=== PATIENT | male | born 1955 | race Caucasian/White ===

== ENCOUNTER 2018-05-10 17:32 | Emergency (ER) | payer OTHER ==
[2018-05-10] MEDS ORDERED: SIMV-49 PO (17:40)
[2018-05-10] MEDS ORDERED: ASPI-1471 PO (17:40)
[2018-05-10] MEDS ORDERED: LISI20TA29 PO (17:40)
--- NOTE | 2018-05-10 17:44 | ER Report ---
History and Physical Time Seen By MD: 17:44 Hx. of Stated Complaint: INSECT BITE TO LEFT HAND. REDNESS AND SWELLING. HPI/ROS CHIEF COMPLAINT: Possible bite to left hand HISTORY OF PRESENT ILLNESS: This is a 63-year-old male who presents to the emergency department, with his for a possible insect bite to his left hand. The patient states that he was in [facility] visiting some friends and may have come into contact unknowingly with some insect that bit his left hand on the ulnar side, throughout the day today he's developed increased redness, swelling and an area that could be an abscess. The hand is swollen from the fingers to the wrist. No significant pain to the hand. No fevers or chills, no aches or pains at this time. No nausea or vomiting. REVIEW OF SYSTEMS: Respiratory: No cough, no dyspnea. Cardiovascular: No chest pain, no palpitations. Gastrointestinal: No vomiting, no abdominal pain. Musculoskeletal: No back pain. Integumentary: As above. Allergies: Coded Allergies: No Known Drug Allergies (Unverified , 05/10/18) Home Meds Active Scripts Ondansetron (ZOFRAN ODT) 4 Mg Tab.rapdis, 4 MG PO Q6H PRN for NAUSEA/VOMITING, #20 TAB.KELI Prov:[facility] 05/10/18 Hydrocodone Bit/Acetaminophen (NORCO 5-325 TABLET) 1 Each Tablet, 1 EACH PO Q4- 6H PRN for PAIN, #12 TAB Prov:[facility]ADGET[facility] 05/10/18 Sulfamethoxazole/Trimet 800-160 Mg Tab (BACTRIM DS TABLET) 1 Each Tablet, 1 TAB PO Q12H, #20 TAB 0 Refills Prov:[facility] PADGETT [facility]- 05/10/18 Reported Medications Simvastatin (SIMVASTATIN) 20 Mg Tablet, 20 MG PO HS, TAB 05/10/18 Aspirin (ASPIR 81) 81 Mg Tablet.dr, 81 MG PO QDAY, TAB 05/10/18 Lisinopril (LISINOPRIL) 20 Mg Tablet, 20 MG PO QDAY, TAB 05/10/18 Past Medical/Surgical History The patient has a past medical and surgical history of hypertension. Reviewed Nurses Notes: Yes Constitutional Vital Sign - Last 24 Hours 05/10/18 05/10/18 05/10/18 05/10/18 17:37 18:00 18:30 19:00 Temp 99.1 Pulse 109 Resp 18 B/P (MAP) 138/88 148/90 (109) 125/83 (97) 142/91 (108) Pulse Ox 93 O2 Delivery Room Air 05/10/18 05/10/18 05/10/18 05/10/18 19:30 19:35 19:50 20:00 Pulse 82 81 B/P (MAP) 124/76 (92) 127/83 (98) Pulse Ox 92 93 05/10/18 05/10/18 05/10/18 05/10/18 20:05 20:20 20:30 20:35 Pulse 87 86 89 B/P (MAP) 110/69 (83) Pulse Ox 85 93 94 05/10/18 20:50 Pulse 103 Pulse Ox 90 Physical Exam General Appearance: The patient is alert, has no immediate need for airway protection and no current signs of toxicity. Eyes: Pupils equal and round no injection. Respiratory: Chest is non tender, lungs are clear to auscultation. Cardiac: regular rate and rhythm. Gastrointestinal: Abdomen is soft and non tender, no masses, bowel sounds normal. Musculoskeletal: Neck: Neck is supple and non tender. Extremities have full range of motion and are non tender. Skin: Cellulitic appearing wound to the dorsum of the left hand with an area on the ulnar side that may have sustained a bite of some sort from an insect. There an area in the middle that is scabbed over, with a convex firm approximately 2-3 cm dark purple area surrounded by some erythema. No sloughing of any tissue at this time. [ ] DIFFERENTIAL DIAGNOSIS: After history and physical exam differential diagnosis was considered for necrotizing fasciitis, brown recluse bite, cellulitis and abscess. Medical Decision Making Data Points Result Diagram: 05/10/188 05/10/188 Laboratory Hematology Test 05/10/18 18:28 Red Blood Count 5.06 M/uL (4.00-5.60) Mean Corpuscular Volume 84.8 fL (80.0-96.0) Mean Corpuscular Hemoglobin 29.7 pg (26.0-33.0) Mean Corpuscular Hemoglobin Concent 35.0 g/dL (32.0-36.0) Red Cell Distribution Width 13.5 % (11.5-14.5) Mean Platelet Volume 7.9 fL (7.2-11.1) Neutrophils (%) (Auto) 86.7 % (39.4-72.5) Lymphocytes (%) (Auto) 5.1 % (17.6-49.6) Monocytes (%) (Auto) 6.6 % (4.1-12.4) Eosinophils (%) (Auto) 0.8 % (0.4-6.7) Basophils (%) (Auto) 0.8 % (0.3-1.4) Nucleated RBC Relative Count (auto) 0.0 /100WBC Neutrophils # (Auto) 10.4 K/uL (2.0-7.4) Lymphocytes # (Auto) 0.6 K/uL (1.3-3.6) Monocytes # (Auto) 0.8 K/uL (0.3-1.0) Eosinophils # (Auto) 0.1 K/uL (0.0-0.5) Basophils # (Auto) 0.1 K/uL (0.0-0.1) Nucleated RBC Absolute Count (auto) 0.00 K/uL Peripheral Blood Smear Yes Y/N Sodium Level 137 mmol/L (137-145) Potassium Level 3.7 mmol/L (3.5-5.0) Chloride Level 100 mmol/L (98-107) Carbon Dioxide Level 27 mmol/L (22-30) Blood Urea Nitrogen 21 mg/dl (9-21) Creatinine 0.90 mg/dl (0.66-1.25) Glomerular Filtration Rate Calc > 60.0 Random Glucose 124 mg/dl (75-110) Calcium Level 9.3 mg/dl (8.4-10.2) Total Bilirubin 0.4 mg/dl (0.2-1.3) Aspartate Amino Transf (AST/SGOT) 19 U/L (0-35) Alanine Aminotransferase (ALT/SGPT) 30 U/L (0-56) Alkaline Phosphatase 85 U/L (0-126) Total Protein 7.3 g/dl (6.3-8.2) Albumin 4.3 g/dl (3.5-5.0) Chemistry Test 05/10/18 18:28 White Blood Count 12.0 k/uL (4.5-11.0) Red Blood Count 5.06 M/uL (4.00-5.60) Hemoglobin 15.0 g/dL (14.0-18.0) Hematocrit 42.9 % (42.0-52.0) Mean Corpuscular Volume 84.8 fL (80.0-96.0) Mean Corpuscular Hemoglobin 29.7 pg (26.0-33.0) Mean Corpuscular Hemoglobin Concent 35.0 g/dL (32.0-36.0) Red Cell Distribution Width 13.5 % (11.5-14.5) Platelet Count 190 K/uL (150-450) Mean Platelet Volume 7.9 fL (7.2-11.1) Neutrophils (%) (Auto) 86.7 % (39.4-72.5) Lymphocytes (%) (Auto) 5.1 % (17.6-49.6) Monocytes (%) (Auto) 6.6 % (4.1-12.4) Eosinophils (%) (Auto) 0.8 % (0.4-6.7) Basophils (%) (Auto) 0.8 % (0.3-1.4) Nucleated RBC Relative Count (auto) 0.0 /100WBC Neutrophils # (Auto) 10.4 K/uL (2.0-7.4) Lymphocytes # (Auto) 0.6 K/uL (1.3-3.6) Monocytes # (Auto) 0.8 K/uL (0.3-1.0) Eosinophils # (Auto) 0.1 K/uL (0.0-0.5) Basophils # (Auto) 0.1 K/uL (0.0-0.1) Nucleated RBC Absolute Count (auto) 0.00 K/uL Peripheral Blood Smear Yes Y/N Glomerular Filtration Rate Calc > 60.0 Calcium Level 9.3 mg/dl (8.4-10.2) Total Bilirubin 0.4 mg/dl (0.2-1.3) Aspartate Amino Transf (AST/SGOT) 19 U/L (0-35) Alanine Aminotransferase (ALT/SGPT) 30 U/L (0-56) Alkaline Phosphatase 85 U/L (0-126) Total Protein 7.3 g/dl (6.3-8.2) Albumin 4.3 g/dl (3.5-5.0) EKG/Imaging Imaging HISTORY: ?bite, eval for abscess Comparison studies: None FINDINGS: There is no acute fracture. The alignment of the left hand is maintained. Soft tissue swelling overlies the dorsal aspect of the hand. No subcutaneous emphysema or foreign body is identified. Atherosclerotic changes are incidentally noted. IMPRESSION: 1. No acute osseous process. Report Dictated By: Tonny Chen DO at 05/10/2018 7:05 PM Report E-Signed By: Tonny Chen DO at 05/10/2018 7:08 PM [id number] HISTORY: ?bite, eval for abscess Comparison studies: None FINDINGS: Grayscale and color images were obtained of the area of concern involving the left hand. Noted is a complex, oblong fluid collection measuring 1.9 x 2.7 x 1.2 cm. There is adjacent vascular hyperemia. Internally debris is noted within the fluid collection. IMPRESSION: 1. Complex subcutaneous fluid collection measuring 1.9 x 2.7 x 1.2 cm with adjacent vascular hyperemia. Infectious process is favored given the degree of vascular hyperemia. Additional differential diagnosis could include a hematoma. Report Dictated By: Tonny Chen DO at 05/10/2018 7:08 PM Report E-Signed By: Tonny Chen DO at 05/10/2018 7:11 PM [id number] ED Course/Re-evaluation Clinical Indication for ER IV: IV Access ED Course Patient was admitted to room. History and physical were obtained. Differential diagnoses were considered. An IV was started. A CBC, CMP were obtained. WBCs 12.0. Chemistry unremarkable. X-ray of hand negative for any acute osseous abnormalities. Ultrasound of the hand showing complex subcutaneous fluid collection. An I&D was performed, a specimen was collected and sent to the lab for culture. Initially the patient tolerated the procedure well, however toward see the procedure he did have a vasovagal event, came to within seconds after, he was diaphoretic, and pale. He was alert and oriented. Patient was given a liter of normal saline, 4 mg IV morphine, 30 mg IV Toradol, 1 g of Rocephin, 4 mg IV Zofran. The patient is traveling through from [facility] back to [place], patient was instructed to follow-up in one to 1-2 days in the nearest emergency department for reevaluation of the wound and remove the wick and was prescribed Bactrim. The patient was doing significantly better after a liter fluid and medications, patient is ready to be discharged. The patient had no other questions or concerns at this time and was discharged home. Patient was also given a take home pack for hydrocodone and Zofran. As well as the prescriptions for Bactrim, Zofran and hydrocodone. Procedure: Abscess drainage. The patient's abscess was located on the left hand part. I obtained verbal consent from the patient to drain the abscess who was informed about the possibility of bleeding and pain. The abscess was incised with a scalpel and a moderate amount of purulent drainage was expressed. I irrigated the wound and placed some packing. Was able to break up loculations The patient tolerated the procedure well. The procedure was performed by myself. Specimen was collected and sent to lab. 05/10/2018 7:22:07 pm at the end of the I&D after I placed a small wick in the opening the patient did have a vasovagal moment, did have a very momentary lapse of unresponsiveness diaphoresis however the patient returned to baseline within several seconds. Patient is alert and oriented. Decision to Disposition Date: May 10, 2018 Decision to Disposition Time: 20:45 Depart Departure Latest Vital Signs Vital Signs Date Time Temp Pulse Resp B/P (MAP) Pulse Ox O2 Delivery O2 Flow Rate FiO2 05/10/18 20:50 103 90 05/10/18 20:30 110/69 (83) 05/10/18 17:37 99.1 18 Room Air Impression: Primary Impression: Abscess of left hand Condition: Improved Disposition: HOME OR SELF-CARE New Scripts Ondansetron (ZOFRAN ODT) 4 Mg Tab.rapdis 4 MG PO Q6H PRN for NAUSEA/VOMITING, #20 TAB.KELI Prov: [facility]- 05/10/18 Hydrocodone Bit/Acetaminophen (NORCO 5-325 TABLET) 1 Each Tablet 1 EACH PO Q4-6H PRN for PAIN, #12 TAB Prov: [facility] 05/10/18 Sulfamethoxazole/Trimet 800-160 Mg Tab (BACTRIM DS TABLET) 1 Each Tablet 1 TAB PO Q12H, #20 TAB 0 Refills Prov: [facility]GET[facility] 05/10/18 Patient Instructions: Abscess (ED), Abscess Incision and Drainage (GEN) Additional Instructions: I placed a small wick in the wound so it will continue to drain, please stop off in 1-2 days at the nearest ED to have the wound reassessed and possibly repack the wound. You have been given one dose of IV antibiotics. Please take the Bactrim as directed. I would anticipate the wound to continue to increase in size and perhaps redness for the next 1-2 days, if significantly worse please return to our ED or follow up in the nearest ED for reevaluation. Be sure to drink plenty of fluids. Get plenty of rest. Take Ibuprofen or Tylenol as needed for pain. Take Lortab as needed for severe pain. Take Zofran for nausea and or vomiting. [facility] [employer] May 10, 2018 17:44
[2018-05-10 18:50] LABS: PLATELET COUNT, AUTOMATED 190 K/uL (150-450)
--- NOTE | 2018-05-10 19:13 | RADIOLOGY IMAGING REPORT ---
FACILITY: [facility] PATIENT NAME: Jero Jones : 1955 MR: [id number] V: [id number] EXAM DATE: ORDERING PHYSICIAN: COOPER PADGETT TECHNOLOGIST: [place] [facility] [place] Jero Jones : 1955 Visit/Account:[id number] Date of Sevice: 05/10/2018 Technique: HAND COMPLETE LEFT HISTORY: ?bite, eval for abscess Comparison studies: None FINDINGS: There is no acute fracture. The alignment of the left hand is maintained. Soft tissue swell ing overlies the dorsal aspect of the hand. No subcutaneous emphysema or foreign body is identified. Atherosclerotic changes are incidentally noted. IMPRESSION: 1. No acute osseous process. Report Dictated By: Tonny Chen DO at 05/10/2018 7:05 PM Report E-Signed By: Tonny Chen DO at 05/10/2018 7:08 PM [id number]
--- NOTE | 2018-05-10 19:15 | RADIOLOGY IMAGING REPORT ---
FACILITY: [facility] PATIENT NAME: Jero Jones : 1955 MR: [id number] V: [id number] EXAM DATE: ORDERING PHYSICIAN: COOPER PADGETT TECHNOLOGIST: Location: [facility] [place] Patient: Jero Jones : 1955 Visit/Account:[id number] Date of Sevice: 05/10/2018 Technique: SOFT TISSUE NON-SPECIFIC HISTORY: ?bite, eval for abscess Comparison studies: None FINDINGS: Grayscale and color images were obtained of the area of concern involving the left hand. No amrita is a complex, oblong fluid collection measuring 1.9 x 2.7 x 1.2 cm. There is adjacent vascular hy peremia. Internally debris is noted within the fluid collection. IMPRESSION: 1. Complex subcutaneous fluid collection measuring 1.9 x 2.7 x 1.2 cm with adjacent vascular hyperem ia. Infectious process is favored given the degree of vascular hyperemia. Additional differential di agnosis could include a hematoma. Report Dictated By: Tonny Chen DO at 05/10/2018 7:08 PM Report E-Signed By: Tonny Chen DO at 05/10/2018 7:11 PM [id number]
[2018-05-10] MEDS ORDERED: NS(*) 0.9% 1000 ML BAG 1,000 ML IV ONE (19:20)
[2018-05-10] MEDS ORDERED: ONDANSETRON 4 MG/2 ML VIAL IVP ONE (19:20)
[2018-05-10] MEDS ORDERED: cefTRIAXone 1 GM VIAL IVP ONE (19:20)
[2018-05-10] MEDS ORDERED: ONDA4TAB PO (19:37)
[2018-05-10] MEDS ORDERED: HYDR-4309 PO (19:37)
[2018-05-10] MEDS ORDERED: SULF-198 PO (19:37)
[2018-05-10] MEDS ORDERED: KETOROLAC 30 MG/ML VIAL IVP ONE (19:40)
[2018-05-10] MEDS ORDERED: MORPHINE 4 MG/ML SDV IVP ONE (19:40)
[2018-05-10 20:30] VITALS: BP 110/69
[2018-05-10] MEDS ORDERED: ONDANSETRON 4 MG ODT TH SL ONE (20:45)
[2018-05-10] MEDS ORDERED: ACET/HYDROC 5/325MG TH ER ONLY 2 TAB/BOTTLE PO ONE (20:45)
== END 2018-05-10 20:58 | disposition home or self-care (01) ==
LOC: ER 17:57
DX: L02.512 Cutaneous abscess of left hand (principal)
CPT/HCPCS: 10060; 73130; 76999; 85025; 87070; 87077; 87186; 96361; 96374; 96375; 99284; J0696; J1885; J2270; J2405; J7030; S0119; 82040; 82247; 82310; 82374; 82435; 82565; 82947; 84075; 84132; 84155; 84295; 84450; 84460; 84520